=== PATIENT | male | born 1955 | race Caucasian/White ===

== ENCOUNTER 2018-10-31 17:14 | Emergency (ER) | payer SELFPAY ==
[2018-10-31] MEDS ORDERED: Ketorolac Tromethamine 60 MG/2 ML VIAL ONE (17:35)
== END 2018-10-31 17:48 | disposition home or self-care (01) ==
LOC: ERS 17:14
DX: M54.5 Low back pain (principal); Z21 Asymptomatic human immunodeficiency virus [HIV] infection status
CPT/HCPCS: 96372; J1885

== ENCOUNTER 2018-11-05 14:20 | Emergency (ER) | payer SELFPAY ==
[2018-11-05] MEDS ORDERED: Ketorolac Tromethamine 30 MG/ML VIAL ONE ×2 (16:24→16:26)
== END 2018-11-05 17:10 | disposition home or self-care (01) ==
LOC: ERS 14:20
DX: M54.5 Low back pain (principal); B20 Human immunodeficiency virus [HIV] disease; Z79.899 Other long term (current) drug therapy
CPT/HCPCS: 96372; J1885

== ENCOUNTER 2019-01-10 21:40 | Observation (INO) | payer MEDICARE, OTHER ==
--- NOTE | 2019-01-10 22:53 | RAD ---
CHEST ONE VIEW: 01/10/19 INDICATION: History of shortness of breath, bilateral lower extremity redness. FINDINGS: There is cardiomegaly with pulmonary vascular congestion and bilateral pleural effusions. There is le ft basilar air space opacity which may reflect atelectasis or pneumonia. No pneumothorax is evident. No acute osseous abnormality is evident. IMPRESSION: 1. Dextrocardia. 2. Findings suspicious for CHF with cardiomegaly, pulmonary vascular congestion and bilateral pl eural effusions. 3. Left basilar air space opacity possibly related to atelectasis or pneumonia. Continued follow up is recommended. POS: [facility]
[2019-01-10] MEDS ORDERED: Furosemide 40 MG/4 ML VIAL ONE (23:05)
[2019-01-10 23:19] LABS: ALT (SGPT) 30 U/L (8-55); AST (SGOT) 54 U/L (5-34); Albumin 2.9 g/dL (3.4-4.8); Alkaline Phosphatase 162 U/L (40-150); Anion Gap 18 mmol/L (10-20); BUN (Urea Nitrogen) 48 mg/dL (8.4-25.7); Bilirubin, Total 1.5 mg/dL (0.2-1.2); Calc. Creatinine Clearance 0 mL/min (70-130); Calcium 9.1 mg/dL (7.8-10.44); Carbon Dioxide 20 mmol/L (23-31); Chloride 101 mmol/L (98-107); Estimated GFR-MDRD 54; Globulin 4.8 g/dL (2.4-3.5); Glucose 101 mg/dL (80-115); Potassium 4.9 mmol/L (3.5-5.1); Protein, Total 7.7 g/dL (5.8-8.1); Sodium 134 mmol/L (136-145)
[2019-01-10 23:20] LABS: Band 2 % (5-11); Hemoglobin 11.9 g/dL (14.0-18.0); Lymphocytes 32 % (21-51); MDiff Complete? YES; Mean Corpuscular HGB CONC 30.8 g/dL (32.0-36.0); Mean Corpuscular Hemoglobin 31.2 pg (27.0-31.0); Mean Platelet Volume 7.3 fL (7.4-10.4); Monocytes 3 % (0-10); Neutrophil 63 % (42-75); Nucleated RBC 9 % (0); Platelet Count 179 thou/uL (130-400); Platelet Morphology Comment Appears Adequate; Red Blood Cell (RBC) Count 3.81 mill/uL (4.70-6.10); White Blood Cell (WBC) Count 4.9 thou/uL (4.8-10.8)
[2019-01-10 23:21] LABS: Troponin I 0.023 ng/mL (< 0.028)
[2019-01-11 01:44] VITALS: BMI 19.5
[2019-01-11 03:30] LABS: Lactic Acid 6.3 mmol/L (0.5-2.2)
[2019-01-11 06:28] LABS: Anion Gap 18 mmol/L (10-20); BUN (Urea Nitrogen) 47 mg/dL (8.4-25.7); Calc. Creatinine Clearance 57 mL/min (70-130); Calcium 8.8 mg/dL (7.8-10.44); Carbon Dioxide 19 mmol/L (23-31); Chloride 102 mmol/L (98-107); Estimated GFR-MDRD 62; Glucose 92 mg/dL (80-115); Magnesium 1.4 mg/dL (1.6-2.6); Potassium 4.1 mmol/L (3.5-5.1); Sodium 135 mmol/L (136-145)
[2019-01-11 06:35] LABS: Band 1 % (5-11); Eosinophils 1 % (0-10); Hemoglobin 11.2 g/dL (14.0-18.0); Lymphocytes 32 % (21-51); MDiff Complete? YES; Mean Corpuscular HGB CONC 30.1 g/dL (32.0-36.0); Mean Corpuscular Hemoglobin 30.8 pg (27.0-31.0); Mean Platelet Volume 7.3 fL (7.4-10.4); Metamyelocyte 1 % (0-0); Monocytes 6 % (0-10); Neutrophil 59 % (42-75); Nucleated RBC 1 % (0); Platelet Count 161 thou/uL (130-400); Platelet Morphology Comment Appears Adequate; RBC Distribution Width 18.1 % (11.5-14.5); Red Blood Cell (RBC) Count 3.63 mill/uL (4.70-6.10); Troponin I 0.018 ng/mL (< 0.028); White Blood Cell (WBC) Count 4.2 thou/uL (4.8-10.8)
[2019-01-11] MEDS ORDERED: Enoxaparin Sodium 40 MG/0.4 ML SYRINGE SC SCH (09:00)
[2019-01-11] MEDS ORDERED: Magnesium 2 GM/50 ML 2 GM in Premix Bag 1 BAG IVPB SCH (10:00)
[2019-01-11] MEDS: Lisinopril 2.5 MG TAB PO SCH (10:08)
[2019-01-11] MEDS: Aspirin Chewable 81 MG TAB PO SCH (10:08)
[2019-01-11] MEDS: Carvedilol 3.125 MG TAB PO SCH ×2 (10:08→20:47)
--- NOTE | 2019-01-11 12:05 | HP ---
PRIMARY CARE PHYSICIAN AND INFECTIOUS DISEASE PHYSICIAN: Dr. Candelaria. REASON FOR ADMISSION: Shortness of breath. HISTORY OF PRESENT ILLNESS: This is a 63-year-old male with history of HIV, hepatitis C, IV drug abuse, CHF, noncompliant, came to the hospital with shortness of breath. He was brought by the police and he was complaining of shortness of breath which has been going on few days. He also complains of leg swelling which has been going on for a few months. Last month, he was discharged from [facility] with same kind of symptoms and he was on PICC line. He was also admitted to [facility] and got AMA from there. Please refer to the notes from Dr. Bailey from [facility]. The patient left AMA without finishing his IV antibiotics for chronic sacral decubitus ulcer for MSSA. The patient denies any fever. He was found to have some lactic acidosis at the ER and blood cultures are pending. No chest pain or palpitations. His breathing seems to be better. His concern was about diet today and he wants to eat. He was not cooperative with history taking and was not able to give a good history. He wants me to look at the records and get the information. The patient reports he does not have history of CHF even though the records mentioned and he was supposed to be on Lasix. The patient is not able to give a good list of his medications. PAST MEDICAL HISTORY: Positive for hepatitis C, CHF, HIV, moderate protein-calorie malnutrition, history of IV drug abuse, history of MSSA recently without finishing the course of antibiotics and chronic sacral decubitus ulcer, and hypertension. PAST SURGICAL HISTORY: PICC line placement. HOME MEDICATIONS: The patient is not able to give a good history, but from the past records, it seems he should be on: 1. DuoNeb. 2. Carvedilol 3.125 b.i.d. 3. Furosemide 20 mg p.o. b.i.d. 4. Losartan 25 mg p.o. daily. 5. Magnesium oxide 400 mg p.o. b.i.d. 6. Protonix 40 mg daily. 7. Potassium chloride 20 mEq p.o. daily. 8. Trimethoprim (Bactrim) one tablet p.o. on Saturday, Saturday, and Saturday. 9. Senakot-S as needed. ALLERGIES: NO KNOWN DRUG ALLERGIES. SOCIAL HISTORY: Denies any smoking or alcohol use. History of IV drug abuse, which the patient refuses having currently. FAMILY HISTORY: No history of any heart disease reported. REVIEW OF SYSTEMS: CONSTITUTIONAL: Negative for weight loss or gain, ability to conduct usual activities. SKIN: Negative for rash, itching. EYES: Negative for double vision, pain. ENT/MOUTH: Negative for nose bleeding, neck stiffness, pain, tenderness. CARDIOVASCULAR: Negative for palpitations, dyspnea on exertion, orthopnea. RESPIRATORY: Negative for shortness of breath, wheezing, cough, hemoptysis, fever or night sweats. GASTROINTESTINAL: Negative for poor appetite, abdominal pain, heartburn, nausea , vomiting, constipation, or diarrhea. GENITOURINARY: Negative for urgency, frequency, dysuria, nocturia. MUSCULOSKELETAL: Negative for pain, swelling. NEUROLOGIC/PSYCHIATRIC: Negative for anxiety, depression. ALLERGY/IMMUNOLOGIC: Negative for skin rash, bleeding tendency. PHYSICAL EXAMINATION: GENERAL: This is a thin-built white male in no apparent distress. VITAL SIGNS: Temperature 97.5, pulse 108, respiratory rate 20, blood pressure 131/69. HEENT: Atraumatic and normocephalic. Oral mucosa is moist. NECK: Supple. Jugular venous distention present. CARDIAC: S1 and S2 heard. Tachycardia. RESPIRATORY: Clear with scattered crackles. GASTROINTESTINAL: Abdomen is soft. MUSCULOSKELETAL: 1 to 2+ edema. DERMATOLOGIC: No skin rash. NEUROLOGIC: Alert and awake. Moving all the extremities. PSYCHIATRIC: Mood and affect normal. LABORATORY DATA: WBC is 4.2, hemoglobin is 11.2, platelets are 161. Potassium 4.1, BUN is 47, creatinine is 1.2. Chest x-ray with fluid overload, dextrocardia, pulmonary vascular congestion, and bilateral pleural effusion. EKG with sinus tachycardia. ASSESSMENT AND PLAN: 1. Acute on chronic systolic congestive heart failure. Plan is to have echocardiogram, start him on low dose of Lasix. We will check lipid panel and TSH in the morning. Limit salt and fluid intake. The patient is noncompliant with that prescription in the past. 2. History of hypertension. We will monitor. 3. Lactic acidosis. Check blood cultures. 4. Anemia with macrocytosis. We will check folate and B12 level. 5. Macrocytic anemia. 6. History of human immunodeficiency viruses. Continue his home medications. 7. Hepatitis C. Follow up with ID as outpatient. 8. Hyponatremia, mild. 9. Metabolic acidosis, most likely from lactic acidosis. We will recheck lactate in the morning. 10. Hyperbilirubinemia. 11. Elevated transaminases, most likely secondary to drugs. AST is elevated. 12. Hyperalbuminemia, most likely from chronic condition and moderated protein-energy malnutrition. 13. Hypermagnesemia. We will replace magnesium. 14. Leg edema, seems to have more swelling in the left leg. We will check Doppler to rule out any clots. 15. Noncompliance, counseled. 16. Gastrointestinal/deep venous thrombosis prophylaxis. We will put on Lovenox and also PPI. Not able to have SCDs. 17. Code status is full. I had discussion with the patient. His next of kin is his , Jennifer. Further decision will be made based on the clinical course. We will also consult Cardiology for further input for his congestive heart failure. For the heart failure, we will continue on aspirin, beta-blockers and we will add low dose of lisinopril and monitor his renal function. His creatinine is better. Monitor labs closely. Job ID: [id number] [facility]
--- NOTE | 2019-01-11 13:01 | ULT ---
BILATERAL LOWER EXTREMITY VENOUS ULTRASOUND: COMPARISON: None. HISTORY: Bilateral lower extremity swelling and edema. TECHNIQUE: Multiplanar, bolton scale, and color Doppler images were obtained in a bilateral lower extremity venous ultrasound. Spectral analysis of the Doppler waveforms was performed. FINDINGS: The right lower extremity shows no evidence of thrombus. The right common femoral vein, profunda fem oral vein, superficial femoral vein, and popliteal vein are normal in appearance without visible thro mbus. These vessels demonstrate normal compression, flow, and augmentation. The right greater saphe nous vein and posterior tibial vein are patent. The left lower extremity shows a small amount of nonocclusive thrombus at the junction of the left co mmon femoral vein and greater saphenous vein and also nonocclusive thrombus in the distal popliteal v ein. The superficial femoral vein is patent without evidence of thrombus. The posterior tibial vein is patent. The greater saphenous vein is patent. The profunda femoral vein is patent. IMPRESSION: Nonocclusive thrombus in the left lower extremity in the common femoral vein and popliteal vein. POS: [facility]
[2019-01-11] MEDS ORDERED: Furosemide 20 MG/2 ML VIAL SLOW IVP SCH (14:00)
--- NOTE | 2019-01-11 14:04 | CON ---
DATE OF CONSULTATION: REASON FOR CONSULTATION: Congestive heart failure. HISTORY OF PRESENT ILLNESS: Mr. Holloway is a 63-year-old gentleman with previous history of HIV, hepatitis C, congestive heart failure, noncompliance, who recently was seen, evaluated at [facility]. He underwent a CHILANGO by mud plant operator at that time. He states his valve at that time had improved. He had positive blood cultures, was transferred to [place] for further disposition. He received IV antibiotics. He states shortly after discharge, he was incarcerated for misdemeanor. His main complaint has been shortness of breath and lower extremity edema. DVT was diagnosed today on recent lower extremity duplex. PAST MEDICAL HISTORY: As above including MRSA, decubitus ulcer, hypertension, PICC line placement, and situs inversus. HOME MEDICATIONS: Include 1. Carvedilol. 2. Lasix. 3. Losartan. 4. Magnesium. 5. Protonix. 6. Potassium chloride. 7. Bactrim. 8. Senokot. ALLERGIES: NONE. SOCIAL HISTORY: No current tobacco or alcohol use. REVIEW OF SYSTEMS: 10-point review of systems is reviewed and as above, otherwise negative. PHYSICAL EXAMINATION: GENERAL: Patient is a pleasant male who is in no acute distress. The patient appears their stated age. VITAL SIGNS: Blood pressure 137/67, pulse 106 temperature afebrile. NEUROLOGIC: The patient is alert and oriented x3 with no focal neurologic deficits. HEENT: Sclerae without icterus. Mouth has moist mucous membranes with normal pallor. NECK: No JVD. Carotid upstroke brisk. No bruits bilaterally. LUNGS: Crackles noted bilaterally. BACK: No scoliosis or kyphosis. CARDIAC: Regular rate and rhythm with normal S1 and S2. No S3 or S4 noted. No significant rubs, murmurs, thrills, or gallops noted throughout the precordium. PMI is not displaced. There is no parasternal heave. ABDOMEN: Soft, nontender, nondistended. No peritoneal signs present. No hepatosplenomegaly. No abnormal striae. EXTREMITIES: 2+ femoral and 2+ dorsalis pedis pulses. No cyanosis, clubbing. 2 to 3+ pitting edema. SKIN: No gross abnormalities. PERTINENT LABORATORY DATA: Hemoglobin 9.2, white blood cell count 4.2, platelet count 161. Lactic acid level 6.3, creatinine 1.2, sodium 135. BNP 3744. Echo Doppler pending. IMPRESSION: 1. Congestive heart failure of unknown etiology. 2. Deep venous thrombosis. 3. Recent sepsis with methicillin-resistant Staphylococcus aureus. 4. Decubitus ulcer. 5. HIV. 6. Situs inversus. 7. Hepatitis C. RECOMMENDATIONS: Very difficult complicated situation with Mr. Holloway. He has a history of congestive heart failure of unknown etiology. I will review his echo. He also has a DVT. We will add Lovenox 1 mg/kg subcu q.12. I am concerned about compliance. He may benefit from an IVC filter placement if compliance is an issue. We will try and obtain records from [facility] to see what has been done in the past. We will obtain blood cultures x2. Job ID: [id number]
--- NOTE | 2019-01-11 14:09 | PDOC.EVN ---
Event Note - Event Note Event Note: Pt with DVT in legs. will start on Eliquis and consult Hematology. Pt is high risk for complications and falls.
[2019-01-11] MEDS: Furosemide 20 MG/2 ML VIAL SLOW IVP SCH (15:11)
[2019-01-11] MEDS ORDERED: Enoxaparin Sodium 60 MG/0.6 ML SYRINGE SC SCH (21:00)
[2019-01-12 05:51] LABS: Anion Gap 11 mmol/L (10-20); BUN (Urea Nitrogen) 47 mg/dL (8.4-25.7); Calc. Creatinine Clearance 0 mL/min (70-130); Calcium 7.9 mg/dL (7.8-10.44); Carbon Dioxide 23 mmol/L (23-31); Cardiac Risk 4.8 (Less than 4.5); Chloride 99 mmol/L (98-107); Cholesterol 91 mg/dl (< 200 Desired); Estimated GFR-MDRD 61; Glucose 104 mg/dL (80-115); HDL Cholesterol 19 mg/dL (>60 Neg Risk); Iron 262 ug/dL (65-175); Iron Binding Capacity, Total 266 mcg/dL (261-462); LDL Cholesterol, Calculated 56 mg/dL; Magnesium 1.5 mg/dL (1.6-2.6); Potassium 3.1 mmol/L (3.5-5.1); Sodium 130 mmol/L (136-145); Triglycerides 79 mg/dL (Less than 150)
[2019-01-12 06:03] LABS: #Lymphocytes 1.3 thou/uL (1.20-3.40); #Monocytes 0.3 thou/uL (0.11-0.59); #Neutrophils 1.5 thou/uL (1.40-6.50); %Eosinophils 0.8 % (0.0-10.0); %Lymphocytes 41.6 % (21.0-51.0); %Monocytes 10.9 % (0.0-10.0); %Neutrophils 46.6 % (42.0-75.0); Hemoglobin 10.4 g/dL (14.0-18.0); Mean Corpuscular HGB CONC 30.8 g/dL (32.0-36.0); Mean Corpuscular Hemoglobin 31.3 pg (27.0-31.0); Mean Platelet Volume 7.1 fL (7.4-10.4); Platelet Count 109 thou/uL (130-400); Platelet Morphology Comment Appears Decreased; RBC Distribution Width 17.2 % (11.5-14.5); Red Blood Cell (RBC) Count 3.31 mill/uL (4.70-6.10); White Blood Cell (WBC) Count 3.1 thou/uL (4.8-10.8)
[2019-01-12 06:10] LABS: Ferritin 320.76 ng/mL (22-322); Thyroid Stimulating Hormone 1.3227 uIU/mL (0.35-4.94)
[2019-01-12 06:24] LABS: Folate (Folic Acid) 12.7 ng/mL (7.0-31.4)
--- NOTE | 2019-01-12 08:33 | PDOC.PN ---
- Subjective Encounter Start Date: 01/12/19 Encounter Start Time: 11:30 Subjective: Patient without complaints this AM. No SOB. No cough. No chest pain. - Objective Resuscitation Status - Order Detail: 01/11/19 08:59 Resuscitation Status Routine Resuscitation Status: FULL: Full Resuscitation Discussed with: patient Vital Signs & Weight: Vital Signs (12 hours) Temp Pulse Resp BP BP Pulse Ox 01/12/19 05:45 97.7 F 91 18 100/57 L 100 01/12/19 03:25 96.6 F L 91 20 95/50 L 100 01/12/19 00:35 89 16 96/53 L 100 01/11/19 23:37 96.9 F L 92 20 88/50 L 100 Weight Weight 135 lb 12.8 oz I&O: 01/11/19 01/12/19 01/13/19 06:59 06:59 06:59 Intake Total 1650 Output Total 3050 Balance -1400 Result Diagrams: 01/12/19 04:43 01/12/19 04:43 Phys Exam - Physical Examination Constitutional: NAD HEENT: moist MMs Respiratory: no wheezing, no rales, no rhonchi Cardiovascular: RRR Gastrointestinal: soft, positive bowel sounds LLE edema Neurological: non-focal Psychiatric: normal affect, A&O x 3 Dx/Plan (1) Acute on chronic systolic (congestive) heart failure Code(s): I50.23 - ACUTE ON CHRONIC SYSTOLIC (CONGESTIVE) HEART FAILURE Status : Acute Comment: EF 40-45%, Moderate to Severe Mitrial Regurgitation, Severe Aortic Regurgitation (2) Acute deep vein thrombosis (DVT) of left femoral vein Code(s): I82.412 - ACUTE EMBOLISM AND THROMBOSIS OF LEFT FEMORAL VEIN Status: Acute Comment: Platelets dropped with Lovenox, d/c'd, spoke with Dr. Vazquez and he recommends oral anticoagulation due to risk of MRSA seeding IVC filter, will start Xarelto 20mg daily per his recommendations. (3) Thrombocytopenia Code(s): D69.6 - THROMBOCYTOPENIA, UNSPECIFIED Status: Acute Comment: Dropped after Lovenox, will monitor (4) Sepsis due to methicillin resistant Staphylococcus aureus (MRSA) Code(s): A41.02 - SEPSIS DUE TO METHICILLIN RESISTANT STAPHYLOCOCCUS AUREUS Status: Resolved Comment: recently seen at [facility], treated with PICC line, d/c'd to swing bed at [place] where he left [place], was reportedly using his PICC line to inject drugs at home, repeat blood cultures pending (5) Acute renal failure (ARF) Status: Acute Comment: improved, Creatinine stable at 1.2 (6) Hypokalemia Code(s): E87.6 - HYPOKALEMIA Status: Acute Comment: oral replacement (7) HIV (human immunodeficiency virus infection) Code(s): B20 - HUMAN IMMUNODEFICIENCY VIRUS [HIV] DISEASE Status: Chronic Comment: continue home meds (8) Hepatitis C Code(s): B19.20 - UNSPECIFIED VIRAL HEPATITIS C WITHOUT HEPATIC COMA Status: Chronic Comment: mild LFT/bilirubin elevation, will monitor (9) Anemia of chronic disease Code(s): D63.8 - ANEMIA IN OTHER CHRONIC DISEASES CLASSIFIED ELSEWHERE Status : Chronic Comment: iron and percent saturation high - Plan cont current plan of care, out of bed/ambulate Possibly back to group home 1-2 days if repeat cultures remain negative * . - Discharge Day Encounter end time: 11:40
[2019-01-12] MEDS: Furosemide 20 MG/2 ML VIAL SLOW IVP SCH ×2 (08:37→14:08)
[2019-01-12] MEDS: Lisinopril 2.5 MG TAB PO SCH (08:39)
[2019-01-12] MEDS: Aspirin Chewable 81 MG TAB PO SCH ×3 (08:39→09:38)
[2019-01-12] MEDS: Carvedilol 3.125 MG TAB PO SCH ×2 (08:39→21:16)
[2019-01-12] MEDS ORDERED: Apixaban 5 MG TAB PO SCH (09:00)
[2019-01-12] MEDS ORDERED: Potassium Chloride 20 MEQ TAB PO SCH (09:30)
--- NOTE | 2019-01-12 11:54 | PRG ---
DATE OF SERVICE: 01/12/2019 SUBJECTIVE: Mr. Holloway currently has no complaints. He states he is breathing better. OBJECTIVE: VITAL SIGNS: Blood pressure 108/50, pulse 87, temperature 97.7. LUNGS: Clear to auscultation. HEART: Regular rate and rhythm with 2/6 diastolic murmur. ABDOMEN: Soft, nontender, nondistended. EXTREMITIES: 2+ pitting edema in left versus right. PERTINENT LABORATORY DATA: Hemoglobin 10.4, hematocrit 33.6, white blood cell count 3.1, platelet count 109. IMPRESSION: 1. Severe AI. 2. Previous IV drug use. 3. HIV. 4. Hepatitis C. RECOMMENDATIONS: Certainly difficult situation with Mr. Holloway. After discussing IVC filter placement, I am unsure he grasps the procedure. He states he can be compliant with medications, although he has not taken his HIV medications in the past. He claims the [facility] care home for not providing him the medications that he needs. I discussed IVC filter placement versus medical therapy. He offered medical therapy. It would certainly be reasonable if he states he can take medications. I am concerned about placement of IVC filter placement and recurrent MRSA to the filter, which could not be removed. Therefore recommend Xarelto 20 mg one p.o. q.a.m. As far as his valve was concerned, he did undergo a CHILANGO over the last 2 months. Comment from the hospitalist was the echo findings appeared worse than the CHILANGO findings. He was found to have moderate AI by CHILANGO. Again based on his previous history, I am unsure whether valve replacement would be reasonable given his social situation and recent MRSA. He likely would reinfect the valves. He also was malnourished and unlikely to do well with bypass surgery and has a previous history of chronic sacral decubitus ulcer likely related to malnutrition. Again at this point, we will challenge with anticoagulation therapy. If he is unable to take medication, we then revisit IVC filter placement. Again, he states he will be compliant with medical therapy. Job ID: [id number]
[2019-01-12 12:11] LABS: Amphetamine Not Detected (NotDetected); Barbiturates Screen Not Detected (NotDetected); Benzodiazepine Screen Not Detected (NotDetected); Cocaine Metabolite Screen Not Detected (NotDetected); Medtox Control Line Valid? VALID (VALID); Medtox Reader # READER 1; Methadone Not Detected (NotDetected); Methamphetamine Not Detected (NotDetected); Opiate Screen Not Detected (NotDetected); Oxycodone Screen Not Detected (NotDetected); Phencyclidine (PCP) Not Detected (NotDetected); THC/Cannabinoid Screen Not Detected (NotDetected); Tricyclic Screen Not Detected (NotDetected)
--- NOTE | 2019-01-12 23:45 | CON ---
DATE OF CONSULTATION: HISTORY OF PRESENT ILLNESS: I was asked by Dr. Vazquez to provide a second opinion on Mr. Holloway. He was admitted through the emergency department on 01/11. He has a long medical history including HIV, hepatitis C, history of IV drug abuse, methamphetamine use, congestive heart failure, being noncompliant. He currently has a PIC line in place. He came to the hospital with shortness of breath and lower extremity edema. He has recently been incarcerated. He was evaluated last month at [facility] for similar symptoms. 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 He was transferred to [place] for further IV antibiotics. He had a DVT noted in the common femoral and popliteal vein on the left. He has been started on Xarelto. PAST MEDICAL HISTORY: 1. HIV. 2. Hepatitis C. 3. Endocarditis. 4. History of IV drug abuse. 5. Hypertension. 6. Chronic sacral decubitus ulcer. PAST SURGICAL HISTORY: PICC line placement. MEDICATIONS: Noted. ALLERGIES: NONE. SOCIAL HISTORY: History of IV drug abuse. REVIEW OF SYSTEMS: Not performed. PHYSICAL EXAMINATION: GENERAL: This is a thin white male, in no distress. VITAL SIGNS: Temperature is 97.7, pulse is 96 and regular, blood pressure is 109/54. LUNGS: Clear bilaterally. HEART: Rhythm is regular without murmur. ABDOMEN: Soft and nontender. EXTREMITIES: There is edema of the left leg. ASSESSMENT AND PLAN: Left leg deep venous thrombosis. I see no indication currently for inferior vena cava filter. He is on chronic IV therapy for staph infection. He should be adequately treated with Xarelto. In regards to his aortic valve - he is currently being treated for endocarditis with IVABX. I would continue this line of therapy. Valve replacement in this gentleman will be frought with complications and senior care issues due to his continued IV drug use. Consideration to inpatient therapy due to his PIC line access should be considered Job ID: [id number] [facility]
[2019-01-13 05:33] LABS: #Lymphocytes 1.5 thou/uL (1.20-3.40); #Monocytes 0.4 thou/uL (0.11-0.59); #Neutrophils 1.9 thou/uL (1.40-6.50); %Basophils 0.4 % (0.0-1.0); %Eosinophils 1.1 % (0.0-10.0); %Lymphocytes 39.5 % (21.0-51.0); Hemoglobin 10.7 g/dL (14.0-18.0); Mean Corpuscular HGB CONC 31.1 g/dL (32.0-36.0); Mean Corpuscular Hemoglobin 31.5 pg (27.0-31.0); Platelet Count 124 thou/uL (130-400); RBC Distribution Width 17.3 % (11.5-14.5); White Blood Cell (WBC) Count 3.8 thou/uL (4.8-10.8)
[2019-01-13 05:36] LABS: Anion Gap 10 mmol/L (10-20); BUN (Urea Nitrogen) 37 mg/dL (8.4-25.7); Calc. Creatinine Clearance 60 mL/min (70-130); Carbon Dioxide 24 mmol/L (23-31); Chloride 98 mmol/L (98-107); Estimated GFR-MDRD 67; Glucose 122 mg/dL (80-115); Potassium 3.2 mmol/L (3.5-5.1); Sodium 129 mmol/L (136-145)
[2019-01-13] MEDS: Furosemide 20 MG/2 ML VIAL SLOW IVP SCH ×2 (06:14→13:39)
--- NOTE | 2019-01-13 08:56 | PDOC.PN ---
- Subjective Encounter Start Date: 01/13/19 Encounter Start Time: 12:20 Subjective: Patient had some stomach bloating earlier today, better with Mylicon. -: Started on Xarelto. No fever or other complaints. - Objective Resuscitation Status - Order Detail: 01/11/19 08:59 Resuscitation Status Routine Resuscitation Status: FULL: Full Resuscitation Discussed with: nereyda WALKER Reviewed: Yes Vital Signs & Weight: Vital Signs (12 hours) Temp Pulse Resp BP Pulse Ox 01/13/19 07:37 97.0 F L 100 20 136/60 100 01/13/19 03:47 97.4 F L 88 14 108/64 97 01/13/19 02:39 97 18 99 01/12/19 23:29 97.6 F 89 20 100/55 L 100 01/12/19 21:01 96 16 100 Weight Admit Weight 136 lb 4.8 oz Weight 134 lb 3.2 oz I&O: 01/12/19 01/13/19 01/14/19 06:59 06:59 06:59 Intake Total 1650 1650 Output Total 3050 3200 Balance -1400 -1550 Result Diagrams: 01/13/19 04:39 01/13/19 04:39 Phys Exam - Physical Examination Constitutional: NAD HEENT: moist MMs Respiratory: no wheezing, no rales, no rhonchi Cardiovascular: RRR, no significant murmur Gastrointestinal: soft, positive bowel sounds Neurological: non-focal, moves all 4 limbs Psychiatric: normal affect, A&O x 3 Dx/Plan (1) Acute on chronic systolic (congestive) heart failure Code(s): I50.23 - ACUTE ON CHRONIC SYSTOLIC (CONGESTIVE) HEART FAILURE Status : Acute Comment: EF 40-45%, Moderate to Severe Mitrial Regurgitation, Severe Aortic Regurgitation (2) Acute deep vein thrombosis (DVT) of left femoral vein Code(s): I82.412 - ACUTE EMBOLISM AND THROMBOSIS OF LEFT FEMORAL VEIN Status: Acute Comment: Platelets dropped with Lovenox, d/c'd, spoke with Dr. Vazquez and he recommends oral anticoagulation due to risk of MRSA seeding IVC filter, will start Xarelto 20mg daily per his recommendations. (3) Thrombocytopenia Code(s): D69.6 - THROMBOCYTOPENIA, UNSPECIFIED Status: Acute Comment: improved off Lovenox (4) Sepsis due to methicillin resistant Staphylococcus aureus (MRSA) Code(s): A41.02 - SEPSIS DUE TO METHICILLIN RESISTANT STAPHYLOCOCCUS AUREUS Status: Resolved Comment: recently seen at [facility], treated with PICC line, d/c'd to swing bed at [place] where he left [place], was reportedly using his PICC line to inject drugs at home, repeat blood cultures pending (5) Acute renal failure (ARF) Status: Acute Comment: improved, Creatinine stable at 1.2 (6) Hypokalemia Code(s): E87.6 - HYPOKALEMIA Status: Acute Comment: oral replacement (7) HIV (human immunodeficiency virus infection) Code(s): B20 - HUMAN IMMUNODEFICIENCY VIRUS [HIV] DISEASE Status: Chronic Comment: continue home meds (8) Hepatitis C Code(s): B19.20 - UNSPECIFIED VIRAL HEPATITIS C WITHOUT HEPATIC COMA Status: Chronic Comment: mild LFT/bilirubin elevation, will monitor (9) Anemia of chronic disease Code(s): D63.8 - ANEMIA IN OTHER CHRONIC DISEASES CLASSIFIED ELSEWHERE Status : Chronic Comment: iron and percent saturation high (10) Coag negative Staphylococcus bacteremia Code(s): R78.81 - BACTEREMIA Status: Acute Comment: 1/ cultures positive, likely contaminent. Given hx of MRSA bacteremia and PICC line in place that may have been used for drugs will consult Dr. Matias. - Plan cont current plan of care Currently not on abx, didn't finish [facility]aria [facility]: Swing bed due to going AMA. May need further course. Will defer to ID. -: Patient reportedly going to half-way per most recent report from police due -: to breaking parole. * . - Discharge Day Encounter end time: 12:30
[2019-01-13] MEDS ORDERED: Potassium Chloride 20 MEQ TAB PO SCH (09:15)
[2019-01-13] MEDS: Carvedilol 3.125 MG TAB PO SCH ×2 (09:40→21:01)
[2019-01-13] MEDS: Lisinopril 2.5 MG TAB PO SCH (09:40)
[2019-01-13] MEDS: Rivaroxaban 10 MG TAB PO SCH (09:40)
[2019-01-13] MEDS ORDERED: Simethicone Chewable 80 MG TAB PO PRN (12:10)
--- NOTE | 2019-01-13 17:14 | CON ---
DATE OF CONSULTATION: 01/13/2019 REASON FOR CONSULTATION: HIV seropositive status and history of prior staphylococcal infection, admitted with heart failure. HISTORY OF PRESENT ILLNESS: A 63-year-old who has history of HIV infection and chronic hepatitis C infection, which has not yet been treated. The HIV infection has been treated by Dr. Candelaria at [facility] over the past few months and initially there was a rapid improvement in viremia control and CD4 cell count; although, the patient is continued taking his anti-retroviral medication for a period of time. I believe in November, he was admitted with Staphylococcus aureus methicillin sensitive bacteremia, which was felt to be originating from knee infection. He had a washout of the knee and had a CT of the C-spine, which did not show any disk changes. He also had a CHILANGO, which did not show any evidence of valvular abnormalities. The patient was treated initially with nafcillin and then I believe ceftaroline was added, eventually was transitioned to daptomycin. The patient completed a course of treatment. His echocardiogram then showed normal LV function, but at least moderate aortic insufficiency and mitral regurgitation. At this time, he is admitted with worsening dyspnea. This was associated with edema and swelling of lower extremities. He is here, brought by [facility]. It is not clear the circumstances that led to his arrest. He denies any headaches. No visual symptoms, sore throat, odynophagia, or dysphagia. No back pain anymore. No C-spine pain. The left knee has improved markedly. Does not have any other joint symptoms at this point in time. No neurological symptoms and no skin disorder. He has not reported any fever before admission. PAST MEDICAL HISTORY: His past medical history includes longstanding HIV infection. His last CD4 cell count in December a few weeks ago was low 200s and a viral load was I believe around 70. He also has chronic hepatitis C, which has not yet been treated. He was admitted with methicillin-sensitive Staphylococcus aureus infection in the left knee, which required arthroscopic debridement. He had concerns with neck infection, specifically C-spine could not tolerate MRI, but a CT was done without contrast, which did not show any evidence of inflammatory process in the C-spine. The patient now reports complete resolution of the C-spine symptoms. He also had a CHILANGO to evaluate for endocarditis and did not show any vegetation; although, he did have aortic valve and mitral valve insufficiency, which was at least moderate. He had a PICC line in place for the duration of the therapy, which was completed with daptomycin. SOCIAL HISTORY: He is currently incarcerated. Drinks occasionally. No smoking history. There is a history of intravenous methamphetamine use, but he has been abstinent for 4 years. ALLERGIES: NONE. FAMILY HISTORY: Noncontributory. CURRENT MEDICATIONS: 1. DuoNeb. 2. Aspirin. 3. Coreg. 4. Lasix. 5. Zestril. 6. Protonix. 7. Genvoya. 8. Xarelto. 9. Mylicon. PHYSICAL EXAMINATION: VITAL SIGNS: T-max 96.9, blood pressure 112/55, pulse 104, respirations 20, and O2 saturation 100%. SKIN: Shows area of slight tissue damage in the presacral region. The patient has peripheral IV access and is voiding spontaneously. LYMPHATICS: No lymphadenopathy. HEENT: Ocular movements conjugate. Sclerae white. Pupils are equal. Oral cavity with numerous missing teeth, remainder ones with marked decay and gum disease. NECK: Supple. No jugular vein distention or carotid bruits. LUNGS: Symmetric air entry. HEART: S1 and S2, regular rate. No obvious murmurs, maybe a faint one at the apex. ABDOMEN: Soft. Not distended or tender. No ascites. No bladder distention. No organomegaly. MUSCULOSKELETAL: The left knee joint appears normal. Normal range of motion. No swelling or tenderness. Other joints without any inflammatory change. No back tenderness. NEUROLOGIC: Nonfocal including cognitive function. LABORATORY DATA: White cell count 4.9 and now 3.8, hemoglobin 10.7, MCV 101, platelets started 179,000 down to 124,000, 49% neutrophils, 39% lymphocytes. Sodium 129, creatinine 1.12, glucose 122, iron 262, percent saturation 98, ferritin 320. AST 54, ALT 30, and alkaline phosphatase 162. BNP was 3700. Albumin 2.9. There is one set of blood cultures with coagulase negative Staph likely contaminant. Other three sets obtained, thus far negative. There is an echocardiogram report, which shows moderate tricuspid regurg, severe aortic regurgitation, [id number] mitral regurgitation and he had duplex ultrasound venous lower extremities, which showed a deep vein thrombosis, partially occluding the left lower extremity common femoral vein and popliteal vein. ASSESSMENT: 1. Longstanding human immunodeficiency virus with last CD4 in the low 200s and viral load I believe in the 70s. 2. Chronic hepatitis C, which has not yet been treated. 3. Recent methicillin-sensitive Staphylococcus aureus infection in left knee, which was treated with arthroscopic debridement and protracted IV antimicrobial therapy. This treatment has been completed and the PICC line has been removed and there has been complete clinical response with normal range of motion in left knee with no inflammatory changes. 4. The patient did not have evidence of endocarditis as per the last transesophageal echocardiogram that was done at [facility]. He also did not have evidence of spinal infection, specifically C-spine. 5. Congestive heart failure associated with aortic and mitral valve failure with severe regurgitation. DISCUSSION: The likely reason for admission is the valvular mechanical failure with regurgitation and pulmonary edema. It looks like Dr. Linder does not feel that he is a candidate for valve replacement. The patient reportedly has been abstinent for 4 years, but this history is not clear. Evidently the prognosis is poor without valve replacement. I do not think that there is evidence to suggest endocarditis at this point in time and as long as the current blood cultures remain negative, bearing in mind that the coagulase-negative Staphylococcus is considered a contaminant of the sample, not a true pathogen, but if the remainder sets remain negative, then I would believe that endocarditis has been ruled out. He did have a CHILANGO done at [facility] and that was negative for vegetations, although CHILANGO has a sensitivity limit of about 3 mm in identifying vegetations, in this regard he could have had endocarditis that was treated as long as the current BC remain negative. I would recommend discontinuation of antimicrobial therapy at this point in time and follow through with management of his deep vein thrombosis and heart failure. He is to continue on anti-retroviral therapy as currently, and I would recommend repeating the CD4 cell count to see if he still needs prophylaxis with Bactrim or not. Finally, he would need to be treated for hepatitis C, but that can be carried out in the outpatient setting. Job ID: [id number] [facility] HOSPITALAicha
[2019-01-14] MEDS ORDERED: Potassium Chloride 10 MEQ TAB PO SCH (08:00)
[2019-01-14] MEDS: Aspirin Chewable 81 MG TAB PO SCH (08:40)
[2019-01-14] MEDS: Lisinopril 2.5 MG TAB PO SCH (08:40)
[2019-01-14] MEDS: Rivaroxaban 10 MG TAB PO SCH (08:40)
[2019-01-14] MEDS: Carvedilol 3.125 MG TAB PO SCH (08:41)
--- NOTE | 2019-01-14 08:58 | PDOC.PN ---
- Subjective Encounter Start Date: 01/14/19 Encounter Start Time: 11:00 Subjective: Patient with mild SOB off Oxygen with activity, but not bad. Off -: O2 all morning. No other complaints. - Objective Resuscitation Status - Order Detail: 01/11/19 08:59 Resuscitation Status Routine Resuscitation Status: FULL: Full Resuscitation Discussed with: patient DENISE Reviewed: Yes Vital Signs & Weight: Vital Signs (12 hours) Temp Pulse Resp BP Pulse Ox 01/14/19 08:40 106 H 01/14/19 08:00 97.3 F L 106 H 18 124/59 L 100 01/14/19 03:53 97.3 F L 104 H 21 H 107/55 L 100 01/13/19 23:54 97.5 F L 101 H 18 103/56 L 96 Weight Admit Weight 136 lb 4.8 oz Weight 127 lb 3.2 oz I&O: 01/13/19 01/14/19 01/15/19 06:59 06:59 06:59 Intake Total 1650 1626 Output Total 3200 2475 Balance -1550 -849 Result Diagrams: 01/13/19 04:39 01/13/19 04:39 Phys Exam - Physical Examination Constitutional: NAD HEENT: moist MMs Respiratory: no wheezing, no rales, no rhonchi Cardiovascular: RRR Gastrointestinal: soft, positive bowel sounds trace edema LLE Neurological: non-focal, moves all 4 limbs Psychiatric: normal affect, A&O x 3 Dx/Plan (1) Acute on chronic systolic (congestive) heart failure Code(s): I50.23 - ACUTE ON CHRONIC SYSTOLIC (CONGESTIVE) HEART FAILURE Status : Acute Comment: EF 40-45%, Moderate to Severe Mitrial Regurgitation, Severe Aortic Regurgitation (2) Acute deep vein thrombosis (DVT) of left femoral vein Code(s): I82.412 - ACUTE EMBOLISM AND THROMBOSIS OF LEFT FEMORAL VEIN Status: Acute Comment: Platelets dropped with Lovenox, d/c'd, spoke with Dr. Vazquez and he recommends oral anticoagulation due to risk of MRSA seeding IVC filter, will start Xarelto 20mg daily per his recommendations. (3) Thrombocytopenia Code(s): D69.6 - THROMBOCYTOPENIA, UNSPECIFIED Status: Acute Comment: improved off Lovenox (4) Sepsis due to methicillin resistant Staphylococcus aureus (MRSA) Code(s): A41.02 - SEPSIS DUE TO METHICILLIN RESISTANT STAPHYLOCOCCUS AUREUS Status: Resolved Comment: recently seen at [facility], treated with PICC line, d/c'd to swing bed at [place] where he left [place], was reportedly using his PICC line to inject drugs at home, repeat blood cultures neg except 1/4 with staph epi contaminent. Dr. Matias has evaluated and recommends against further antibiotics at this time. (5) Acute renal failure (ARF) Status: Acute Comment: improved, Creatinine stable (6) Hypokalemia Code(s): E87.6 - HYPOKALEMIA Status: Acute Comment: oral replacement (7) HIV (human immunodeficiency virus infection) Code(s): B20 - HUMAN IMMUNODEFICIENCY VIRUS [HIV] DISEASE Status: Chronic Comment: continue home meds (8) Hepatitis C Code(s): B19.20 - UNSPECIFIED VIRAL HEPATITIS C WITHOUT HEPATIC COMA Status: Chronic Comment: mild LFT/bilirubin elevation, will monitor (9) Anemia of chronic disease Code(s): D63.8 - ANEMIA IN OTHER CHRONIC DISEASES CLASSIFIED ELSEWHERE Status : Chronic Comment: iron and percent saturation high (10) Coag negative Staphylococcus bacteremia Code(s): R78.81 - BACTEREMIA Status: Acute Comment: 1/4 cultures positive, likely contaminent. Given hx of MRSA bacteremia and PICC line in place that may have been used for drugs will consult Dr. Matias. - Plan cont current plan of care appears stable for d/c to long-term at this time on Xarelto * . - Discharge Day Encounter end time: 11:35
[2019-01-14] MEDS ORDERED: Furosemide 40 MG/4 ML VIAL SLOW IVP SCH (09:00)
[2019-01-14 12:17] VITALS: BP 102/56; TEMP 97.7
--- NOTE | 2019-01-14 14:19 | DIS ---
DATE OF ADMISSION: 01/11/2019 DATE OF DISCHARGE: 01/14/2019 PRIMARY CARE PHYSICIAN: Dr. Candelaria, Infectious Disease at [facility]. REASON FOR ADMISSION: Shortness of breath and CHF exacerbation. DIAGNOSES AT DISCHARGE: 1. Rwalj-vx-cclfzdk systolic congestive heart failure. 2. Severe mitral regurgitation. 3. Severe aortic regurgitation. 4. Acute deep vein thrombosis of the left femoral vein. 5. Thrombocytopenia, resolved. 6. Acute renal failure, resolved. 7. Hypokalemia, resolved. 8. Previous methicillin-resistant Staphylococcus aureus bacteremia with no methicillin-resistant Staphylococcus aureus on blood cultures in our hospital. 9. Chronic human immunodeficiency virus. 10. Hepatitis C. 11. Anemia of chronic disease. PROCEDURES: 1. Venogram of bilateral lower extremity showing a nonocclusive thrombus in the left lower extremity, common femoral vein and popliteal vein. 2. Echocardiogram showing ejection fraction of 40% to 45%, [id number] mitral regurgitation and severe aortic regurgitation. CONSULTATIONS: 1. Cardiology, Dr. Vazquez. 2. CV surgery, Dr. Linder. 3. Infectious Disease, Dr. Matias. PERTINENT LABORATORY: The patient had 4 blood cultures done and 1 of the 4 grew out presumptive Micrococcus/Kocuria, which are presumed skin contaminants. SUMMARY OF HOSPITAL COURSE: This is a 63-year-old white male brought in from [facility] for shortness of breath. He has a history of systolic congestive heart failure along with HIV, hepatitis C and IV drug abuse. He was complaining of shortness of breath for few days and left leg swelling going on for few months. He had previously been at the [facility] and had a knee infection that had to be washed out and had MRSA bacteremia. He had a PICC line placed and had IV antibiotics done in [facility]. He did end up leaving AMA from there. The patient is currently in [facility] and is likely to be transferred to shelter. The patient was found to have a DVT and to be in acute congestive heart failure. He was treated with IV Lasix with resolution of his shortness of breath. He was eventually able to be weaned off oxygen. He did have Lovenox started for the DVT. There was some consideration of an IVC filter placement due to his history of noncompliance with medications. However, also given his history of previous IV drug use and MRSA bacteremia, it was thought he is too high risk to place one that it could be infected. The patient as a result was placed on Xarelto 20 mg daily. His blood cultures were done x4, one of them did come back with a contaminant. Dr. Matias was consulted. He recommended no antibiotics at this point, but continue ID followup as an outpatient to monitor his HIV. The patient was doing well the day of discharge and is being discharged back to [facility]. DISCHARGE MANAGEMENT: Discharged to [facility]. ACTIVITY: As tolerated. DIET: Healthy heart, fluid-restricted, low-sodium diet. MEDICATIONS: 1. Albuterol inhaler as needed for coughing, wheezing, shortness of breath. 2. Aspirin 81 mg daily. 3. Carvedilol 3.125 mg twice daily. 4. Furosemide 40 mg daily. 5. Lisinopril 2.5 mg daily. 6. Potassium chloride 10 mEq twice daily. 7. Protonix 40 mg daily. 8. Continue his Genvoya 1 tablet each night for his HIV. 9. Xarelto 20 mg daily. 10. Prescriptions were given for all of these medications except for his home HIV medicine and a coupon for 1st month of Xarelto free was given as well. FOLLOW UP: The patient needs to follow up with Dr. Candelaria, Infectious Disease in the next 3-4 weeks. Arranging the details of this discharge took 35 minutes. Job ID: [id number]
--- NOTE | 2019-01-17 11:57 | EKG ---
Test Reason : Blood Pressure : / mmHG Vent. Rate : 112 BPM Atrial Rate : 112 BPM P-R Int : 150 ms QRS Dur : 086 ms QT Int : 336 ms P-R-T Axes : 108 063 074 degrees QTc Int : 458 ms Sinus tachycardia with Premature atrial complexes Low voltage QRS Anterolateral infarct , age undetermined Abnormal ECG Confirmed by SHAYLEE OVALLE DO ([id number]), news assignment editor GALINA MONK ([id number]) on 01/17/2019 11:56:48 AM Referred By: Confirmed By:SHAYLEE OVALLE DO
== END 2019-01-14 13:10 ==
LOC: ERS 21:40 → 2SW 01-11 01:19
PROVIDERS: ADMIT Internal Medicine; ATTEND Internal Medicine
DX: R06.02 Shortness of breath (principal); I11.0 Hypertensive heart disease with heart failure; I50.23 Acute on chronic systolic (congestive) heart failure; B20 Human immunodeficiency virus [HIV] disease; B19.20 Unspecified viral hepatitis C without hepatic coma; E44.0 Moderate protein-calorie malnutrition; E87.2 Acidosis; D53.9 Nutritional anemia, unspecified; E87.1 Hypo-osmolality and hyponatremia; E80.6 Other disorders of bilirubin metabolism; E83.41 Hypermagnesemia; R74.0 Nonspecific elevation of levels of transaminase and lactic acid dehydrogenase [LDH]; R60.0 Localized edema; Z68.1 Body mass index [BMI] 19.9 or less, adult; Z79.899 Other long term (current) drug therapy; Z91.19 Patient's noncompliance with other medical treatment and regimen
CPT/HCPCS: 36415; 71045; 80048; 80053; 80061; 80306; 82607; 82728; 82746; 83540; 83550; 83605; 83735; 83880; 84443; 84484; 85025; 87040; 87149; 93005; 93306; 93970; 94640; 94760; 96372; 96374; 96375; 96376; G0378; J1650; J1940; J3475; J7620